=== PATIENT | female | born 1965 | race Asian ===

== ENCOUNTER 2017-04-02 10:33 | Emergency (ER) | payer MEDICAID ==
[~2017-04-02] VITALS: Ht 152.4 cm; Wt 57.0 kg
[2017-04-02 10:35] VITALS: BP 150/88
== END 2017-04-02 12:15 | disposition home or self-care (01) ==
LOC: ED 12:00
DX: R05 Cough (principal); R09.81 Nasal congestion; I10 Essential (primary) hypertension
CPT/HCPCS: 71046; 99284